=== PATIENT | female | born 1960 | race Caucasian/White ===

== ENCOUNTER 2024-03-02 08:21 | Outpatient (OUT) | payer OTHER, SELFPAY ==
--- NOTE | 2024-03-02 08:24 | US_ITS ---
[address] [address] Patient Name: AIDE MCDUFFIE MRN: [id number] date: 1960 Sex: F Assigned Patient Location: US Current Patient Location: Accession/Order Number: [id number] Exam Date: 03/02/2024 08:30 Report Date: 03/03/2024 06:32 At the request of: NON-STAFF PHYSICIAN Procedure: US pelvis w/ transvaginal EXAMINATION: US pelvis w/ transvaginal HISTORY: Pelvic Pain R10.2 COMPARISON: No relevant comparison available. TECHNIQUE: Transabdominal and/or transvaginal sonographic examination was performed as indicated by examination type. FINDINGS: UTERUS: Hysterectomy. RIGHT OVARY: Not seen. LEFT OVARY: Not seen. CUL-DE-SAC: Unremarkable. No significant free fluid. BLADDER: Unremarkable. OTHER: None. US/US pelvis w/ transvaginal IMPRESSION: 1. Prior hysterectomy. 2. Neither ovary could be identified. No suspicious adnexal findings. Electronically authenticated by: PAT RIVERA Date: 03/03/2024 06:32
== END 2024-03-02 08:22 | disposition home or self-care (01) ==
LOC: US 08:21
DX: R10.2 Pelvic and perineal pain (principal)
CPT/HCPCS: 76830; 76856

== ENCOUNTER 2024-10-22 10:26 | Emergency (ER) | payer OTHER, SELFPAY ==
[2024-10-22 10:43] VITALS: BP 195/94; PULSE 75; TEMP 36.7; O2SAT 97; BMI 28.6
--- OUTSIDE RECORDS SUMMARY | 2024-10-22 10:44 | XMS_ITS | CCD ---
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 Start: 10-05-2023 Alcohol Comment Caffeine intak e: 2-3 cups per day coffee [facility] Start: 1960 Sex assigned at Not on file [facility] History of Present illness Narrative 09-28-2024 Sarah Addison MD - 09/28/2024 8:30 AM EST Note Date & Type Note Facility 09-28-2024 History of Presen t illness Narrative Patient ID: Aide Retana is a 63 y.o. female who presents for: LDI Follow Up: Patients Fatigue has Improved Joint pain has improved Muscle pain has improved Brain fog has improved Allergy symptoms have improved The patient complain of neurological symptoms: none The patient is sleeping well He/She are following the essentials to wellness: Following Diet: Good Sleeping 7-8 Hours per night: Good Taking recommended supplements: Good Getting regular exercise: Good Stress Management as directed: Good Review of Systems Unremarkable except as mentioned Objective The patient is pleasant and in no acute distress The patient has good eye contact and clear speech Visit Vitals Smoking Status Former No Known Allergies Current Outpatient Medications on File Prior to Visit Medication Sig Dispense Refill LDI 5u C6 Food LDI 6U C6 ENV No current facility-administered medications on file prior to visit. 1. Gastrointestinal food allergy (Primary) This patient has a chronic complex problem, that is variable in nature, requiring complex re-evaluation of dilutions and volumes for the low-dose immunotherapy (LDI) treatment doses; managment requires moderate decision making The patient, or their representatives, is here for LDI re-evaluation after having found an core dose. We have reviewed which symptoms have improved and which symptoms have not. We have reviewed any improvement that they may have received from booster doses. We have discussed and established that the patient remains essentially side effect free, except for possible mild transient symptoms at the time of dosing. We have discussed their remaining symptoms and disease processes. We have discussed other options for LDI targets. Their questions were answered. We have jointly agreed on either the current dosing or next target and it's starting dilution. We reviewed how to titrate their LDI, the Essentials to Wellness , the importance of continued communication thru the patient portal, and to keep office appointments and bring their folders to each appointment. - LDI; Place 1 Dose under the tongue every 8 (eight) weeks 5u C6 Food 2. Chronic non-seasonal allergic rhinitis Chronic problem that she is doing very well with. She has not used any antihistamines or nasal sprays and feels like she is breathing completely normal. - LDI; Place 1 Dose under the tongue every 8 (eight) weeks 6U C6 ENV documented in this encounter [facility] Clinical Note 05-25-2024 Note Date & Type Note Facility 05-25-2024 Note Patient Education Nutrition BMI for Adults Body mass index (BMI) is a number found using a person's weight and height. BMI can help tell how much of a person's weight is made up of fat. BMI does not measure body fat directly. It is used instead of tests that directly measure body fat, which can be difficult and expensive. What are BMI measurements used for? BMI is useful to: ??? Find out if your weight puts you at higher risk for medical problems. ??? Help recommend changes, such as in diet and exercise. This can help you reach a healthy weight. BMI screening can be done again to see if these changes are working. How is BMI calculated? Your height and weight are measured. The BMI is found from those numbers. This can be done with U.S. or metric measurements. Note that charts and online BMI calculators are available to help you find your BMI quickly and easily without doing these calculations. To calculate your BMI in U.S. measurements: 1. Measure your weight in pounds (lb). 2. Multiply the number of pounds by 703. ??? So, for an adult who weighs 150 lb, multiply that number by 703: 150 x 703, which equals 105,450. 3. Measure your height in inches. Then multiply that number by itself to get a measurement called inches squared. ??? So, for an adult who is 70 inches tall, the inches squared measurement is 70 inches x 70 inches, which equals 4,900 inches squared. 4. Divide the total from step 2 (number of lb x 703) by the total from step 3 (inches squared): 105,450 ? 4,900 = 21.5. This is your BMI. To calculate your BMI in metric measurements: 1. Measure your weight in kilograms (kg). ??? For this example, the weight is 70 kg. 2. Measure your height in meters (m). Then multiply that number by itself to get a measurement called meters squared. ??? So, for an adult who is 1.75 m tall, the meters squared measurement is 1.75 m x 1.75 m, which equals 3.1 meters squared. 3. Divide the number of kilograms (your weight) by the meters squared number. In this example: 70 ? 3.1 = 22.6. This is your BMI. What do the results mean? BMI charts are used to see if you are underweight, normal weight, overweight, or obese. The following guidelines will be used: ??? Underweight: BMI less than 18.5. ??? Normal weight: BMI between 18.5 and 24.9. ??? Overweight: BMI between 25 and 29.9. ??? Obese: BMI of 30 or above. BMI is a tool and cannot diagnose a condition. Talk with your health care provider about what your BMI means for you. Keep these notes in mind: ??? Weight includes fat and muscle. Someone with a muscular build, such as an athlete, may have a BMI that is higher than 24.9. In cases like these, BMI is not a correct measure of body fat. ??? If you have a BMI of 25 or higher, your provider may need to do more testing to find out if excess body fat is the cause. ??? BMI is measured the same way for males and females. Females usually have more body fat than males of the same height and weight. Where to find more information For more information about BMI, including tools to quickly find your BMI, go to: ??? Centers for Disease Control and Prevention: cdc.gov ??? [place] [employer]: heart.org ??? National Heart, Lung, and Blood [place]: nhlbi.nih.gov This information is not intended to replace advice given to you by your health care provider. Make sure you discuss any questions you have with your health care provider. Document Revised: 04/01/2023 Document Reviewed: 03/25/2023 [employer] Patient Education ? 2023 [employer]. [facility] Clinical Note 04-03-2024 Note Date & Type Note Facility 04-03-2024 Note Patient Education Nutrition BMI for Adults Body mass index (BMI) is a number found using a person's weight and height. BMI can help tell how much of a person's weight is made up of fat. BMI does not measure body fat directly. It is used instead of tests that directly measure body fat, which can be difficult and expensive. What are BMI measurements used for? BMI is useful to: ? Find out if your weight puts you at higher risk for medical problems. ? Help recommend changes, such as in diet and exercise. This can help you reach a healthy weight. BMI screening can be done again to see if these changes are working. How is BMI calculated? Your height and weight are measured. The BMI is found from those numbers. This can be done with U.S. or metric measurements. Note that charts and online BMI calculators are available to help you find your BMI quickly and easily without doing these calculations. To calculate your BMI in U.S. measurements: 1. Measure your weight in pounds (lb). 2. Multiply the number of pounds by 703. ? So, for an adult who weighs 150 lb, multiply that number by 703: 150 x 703, which equals 105,450. 3. Measure your height in inches. Then multiply that number by itself to get a measurement called inches squared. ? So, for an adult who is 70 inches tall, the inches squared measurement is 70 inches x 70 inches, which equals 4,900 inches squared. 4. Divide the total from step 2 (number of lb x 703) by the total from step 3 (inches squared): 105,450 ? 4,900 = 21.5. This is your BMI. To calculate your BMI in metric measurements: 1. Measure your weight in kilograms (kg). ? For this example, the weight is 70 kg. 2. Measure your height in meters (m). Then multiply that number by itself to get a measurement called meters squared. ? So, for an adult who is 1.75 m tall, the meters squared measurement is 1.75 m x 1.75 m, which equals 3.1 meters squared. 3. Divide the number of kilograms (your weight) by the meters squared number. In this example: 70 ? 3.1 = 22.6. This is your BMI. What do the results mean? BMI charts are used to see if you are underweight, normal weight, overweight, or obese. The following guidelines will be used: ? Underweight: BMI less than 18.5. ? Normal weight: BMI between 18.5 and 24.9. ? Overweight: BMI between 25 and 29.9. ? Obese: BMI of 30 or above. BMI is a tool and cannot diagnose a condition. Talk with your health care provider about what your BMI means for you. Keep these notes in mind: ? Weight includes fat and muscle. Someone with a muscular build, such as an athlete, may have a BMI that is higher than 24.9. In cases like these, BMI is not a correct measure of body fat. ? If you have a BMI of 25 or higher, your provider may need to do more testing to find out if excess body fat is the cause. ? BMI is measured the same way for males and females. Females usually have more body fat than males of the same height and weight. Where to find more information For more information about BMI, including tools to quickly find your BMI, go to: ? Centers for Disease Control and Prevention: cdc.gov ? [place] [employer] Association: heart.org ? National Heart, Lung, and Blood [place]: nhlbi.nih.gov This information is not intended to replace advice given to you by your health care provider. Make sure you discuss any questions you have with your health care provider. Document Revised: 04/01/2023 Document Reviewed: 03/25/2023 [email or web address] Patient Education ? 2023 [employer]. [facility] Clinical Note 02-15-2024 Note Date & Type Note Facility 02-15-2024 Note Nurse Consultation N ote Assessment/Plan Dysuria (R30.0: Dysuria) Medications meloxicam 15 mg Tab, 15 mg= 1 tab(s), Oral, Daily, PRN, 3 refills Allergies Cortisporin Otic (Unknown) Immunizations Vaccine Date Status Comments SARS-CoV-2 mRNA (susannan 5y-11y) vac - Not Given Postpone due to refusal influenza virus vaccine, inactivated 07/04/2019 Recorded influenza virus vaccine, inactivated 04/26/2017 Recorded Lab Results Ambulatory Point of Care Results Bilirubin Urine Dipstick: Negative (02/15/24 13:53:00) Blood Urine Dipstick: 1+ Small (02/15/24 13:53:00) Glucose Urine Dipstick: Negative (02/15/24 13:53:00) Ketones Urine Dipstick: Negative (02/15/24 13:53:00) Leukocytes Urine Dipstick: Trace (02/15/24 13:53:00) Nitrite Urine Dipstick: Negative (02/15/24 13:53:00) Protein Urine Dipstick: Negative (02/15/24 13:53:00) Specific [place] Urine Dipstick: >=1.030 (02/15/24 13:53:00) Urine Appearance Urine Dipstick: Clear (02/15/24 13:53:00) Urine Color Urine Dipstick: Light yellow (02/15/24 13:53:00) Urobilinogen Urine Dipstick: Normal 0.2-1 EU/dl (02/15/24 13:53:00) pH Urine Dipstick: 5 (02/15/24 13:53:00) [facility] Clinical Note 02-15-2024 Note Date & Type Note Facility 02-15-2024 Note Nurse Consultation N ote Reason for Visit Pt came in for a UA she is complaining of dysuria, frequency, pain, and pressure and a bad odor Assessment/Plan Dysuria (R30.0: Dysuria) Medications meloxicam 15 mg Tab, 15 mg= 1 tab(s), Oral, Daily, PRN, 3 refills Allergies Cortisporin Otic (Unknown) Immunizations Vaccine Date Status Comments SARS-CoV-2 mRNA (tozinameran 5y-11y) vac - Not Given Postpone due to refusal influenza virus vaccine, inactivated 07/04/2019 Recorded influenza virus vaccine, inactivated 04/26/2017 Recorded Lab Results Ambulatory Point of Care Results Bilirubin Urine Dipstick: Negative (02/15/24 13:53:00) Blood Urine Dipstick: 1+ Small (02/15/24 13:53:00) Glucose Urine Dipstick: Negative (02/15/24 13:53:00) Ketones Urine Dipstick: Negative (02/15/24 13:53:00) Leukocytes Urine Dipstick: Trace (02/15/24 13:53:00) Nitrite Urine Dipstick: Negative (02/15/24 13:53:00) Protein Urine Dipstick: Negative (02/15/24 13:53:00) Specific [place] Urine Dipstick: >=1.030 (02/15/24 13:53:00) Urine Appearance Urine Dipstick: Clear (02/15/24 13:53:00) Urine Color Urine Dipstick: Light yellow (02/15/24 13:53:00) Urobilinogen Urine Dipstick: Normal 0.2-1 EU/dl (02/15/24 13:53:00) pH Urine Dipstick: 5 (02/15/24 13:53:00) [facility] Clinical Note 02-15-2024 Note Date & Type Note Facility 02-15-2024 Note Nurse Consultation N ote Reason for Visit UA drop off she is complaining of Dysuria, frequency, and pressure,bad odor Medications meloxicam 15 mg Tab, 15 mg= 1 tab(s), Oral, Daily, PRN, 3 refills Allergies Cortisporin Otic (Unknown) Immunizations Vaccine Date Status Comments SARS-CoV-2 mRNA (tozinameran 5y-11y) vac - Not Given Postpone due to refusal influenza virus vaccine, inactivated 07/04/2019 Recorded influenza virus vaccine, inactivated 04/26/2017 Recorded [facility] Evaluation note Note Date & Type Note Facility Evaluation note Diagnosis Gastrointestinal food allergy- Primary Allergic gastroenteritis and colitis Chronic non-seasonal allergic rhinitis documented in this encounter [facility] Summary Purpose Family History No Family History Records FoundNo Family History Records FoundNo Family History Records FoundNo Family History Records FoundNo Family History Records Found Advance Directives No Advanced Directives Records FoundNo Advanced Directives Records FoundNo Advanced Directives Records FoundNo Advanced Directives Records FoundNo Advanced Directives Records Found Additional Source Comments INFORMATION SOURCE (unrecogn ized section and content) DATE CREATED AUTHOR 12/07/2022 [facility] DATE CREATED AUTHOR AUTHOR'S ORGANIZ ATION 02/24/2024 [facility] DATE CREATED AUTHOR AUTHOR'S ORGANIZ ATION 02/27/2024 [facility] DATE CREATED AUTHOR AUTHOR'S ORGANIZ ATION 09/30/2024 [facility] DATE CREATED AUTHOR AUTHOR'S ORGANIZ ATION 10/18/2024 [facility] Care Teams (unrecognized sec tion and content) [employer] Relationship Specialty Start Date End Date Ivan Serrano MD PCP - General Family Medicine 09/27/23 [employer] Relationship Specialty Start Date End Date Ivan Serrano MD PCP - General Family Medicine 09/27/23 Reason for Visit (unrecogniz ed section and content) Reason Comments LDI FOR RECORDS PERTAINING TO PATIENTS WHO ARE OR HAVE BEEN ENROLLED IN A CHEMICAL DEPENDENCY/SUBSTANCEABUSE PROGRAM, SOME INFORMATION MAY BE OMITTED. This clinical summary was aggregated from multiple sources. Caution should be exercised in using it in the provision of clinical care. This summary normalizes information from multiple sources, and as a consequence, information in this document may materially change the coding, format and clinical context of patient data. In addition, data may be omitted in some cases. CLINICAL DECISIONS SHOULD BE BASED ON THE PRIMARY CLINICAL RECORDS. [facility]. provides no warranty or guarantee of the accuracy or completeness of information in this document.
--- NOTE | 2024-10-22 10:53 | ED_ITS ---
HPI HPI - General Adult General Chief complaint: Abdominal Pain Stated complaint: NO BOWEL MOMENT FOR 1 WEEK, SWEATS Time Seen by Provider: 10/22/24 10:32 Source: patient Mode of arrival: walk-in History of Present Illness HPI narrative: 63-year-old female presents for abdominal pain and inability to have a bowel movement. 6 days ago she developed nausea vomiting and diarrhea in the next day saw her doctor and he prescribed her Zofran. It then resolved but she has not had a bowel movement since then and now she has diffuse abdominal pain. No fever or hematemesis or hematochezia. The diarrhea has fully resolved as has the vomiting and nausea. Related Data Home Medications ?Medication ?Instructions ?Recorded ?Confirmed meloxicam 15 mg tablet 15 mg PO DAILY PRN pain 10/22/24 10/22/24 ondansetron HCl 4 mg tablet 4 mg PO Q8H PRN nausea and vomiting 10/22/24 10/22/24 Allergies Allergy/AdvReac Type Severity Reaction Status Date / Time No Known Drug Allergies Allergy Verified 10/22/24 10:42 Opioid HPI Opioid Management Most Recent Opioid Data: No Data to Display Review of Systems ROS Narrative A ten point review of systems is negative except as noted above. PFSH PFSH Social History Little interest or pleasure in doing things: not at all Feeling down, depressed, or hopeless: not at all Exam Narrative Exam Narrative: Nurses note and vital signs reviewed and patient is not hypoxic. General: The patient appears in no apparent distress. Patient is resting on cart. Skin: Warm, dry, no pallor noted. There is no rash noted. Head: Normocephalic, atraumatic Eye: Normal conjunctiva, no drainage Ears, Nose, Mouth, and Throat: oral mucosa is moist. Nares patent. Cardiovascular: Regular Rate and Rhythm Respiratory: Patient is in no distress, no accessory muscle use, lungs are clear to auscultation, no wheezing, rales or rhonchi Back: non-tender GI: Diffuse redness without distention or mass. No rebound or guarding Musculoskeletal: The patient has no evidence of calf tenderness, no pitting edema, symmetrical pulses noted bilaterally Neurological: A&O, normal speech Psychiatric: Cooperative Constitutional Vital Signs, click to edit/add: Last Vital Signs Temp 98.0 F 10/22/24 10:43 Pulse 72 10/22/24 12:18 Resp 18 10/22/24 12:18 BP 165/95 H 10/22/24 12:18 Pulse Ox 98 10/22/24 12:18 Course Vital Signs Vital signs: Vital Signs Temperature 98.0 F 10/22/24 10:43 Pulse Rate 75 10/22/24 10:43 Respiratory Rate 18 10/22/24 10:43 Blood Pressure 195/94 H 10/22/24 10:43 Pulse Oximetry 97 10/22/24 10:43 Temperature 98.0 F 10/22/24 10:43 Pulse Rate 72 10/22/24 12:18 Respiratory Rate 18 10/22/24 12:18 Blood Pressure 165/95 H 10/22/24 12:18 Pulse Oximetry 98 10/22/24 12:18 Medical Decision Making MDM Narrative Medical decision making narrative: CAT scan shows constipation. No other abnormalities are identified. She was given a bottle of magnesium citrate. Treatment diagnosis and follow-up were discussed with the patient. Differential Diagnosis Differential Diagnosis: Constipation, bowel obstruction, diverticulitis, colitis Lab Data Lab results reviewed: Yes I reviewed the patient's lab results Labs: Lab Results 10/22/24 10/22/24 Range/Units 11:08 11:15 WBC 9.8 (4.0-11.0) 10^3/uL RBC 4.99 (4.20-5.40) 10^6/uL Hgb 14.6 (12.0-16.0) g/dL Hct 42.3 (36.0-48.0) % MCV 84.8 (81.0-99.0) fL MCH 29.3 (26.7-34.0) pg MCHC 34.5 (29.9-35.2) g/dL RDW 12.5 (11.0-15.0) % Plt Count 383 (150-450) 10^3/uL MPV 9.9 (9.5-13.5) fL Neut % (Auto) 72.4 (43.0-75.0) % Lymph % (Auto) 21.6 (20.5-60.0) % [place] % (Auto) 4.7 (1.7-12.0) % Eos % (Auto) 0.5 L (0.9-7.0) % Baso % (Auto) 0.5 (0.2-2.0) % Neut # (Auto) 7.1 H (1.4-6.5) 10^3/uL Lymph # (Auto) 2.1 (1.2-3.8) 10^3/uL [place] # (Auto) 0.5 (0.3-0.8) 10^3/uL Eos # (Auto) 0.1 (0.0-0.7) 10^3/uL Baso # (Auto) 0.1 (0.0-0.1) 10^3/uL Abs Immat Gran (auto) 0.03 (0.00-0.03) 10^3/uL Imm/Tot Granulo (auto) 0.3 (0.0-0.5) % Sodium 140 (136-145) mmol/L Potassium 4.2 (3.5-5.1) mmol/L Chloride 103 (98-107) mmol/L Carbon Dioxide 25.8 (21.0-32.0) mmol/L Anion Gap 15.4 BUN 19.0 H (7.0-18.0) mg/dL Creatinine 0.93 (0.55-1.02) mg/dL Est GFR ( Amer) >60 (>=60 mL/min/1.73m^2) Est GFR (Non-Af Amer) >60 (>=60 mL/min/1.73m^2) BUN/Creatinine Ratio 20.4 Glucose 120 H (74-106) mg/dL Calcium 9.7 (8.5-10.1) mg/dL Total Bilirubin 0.3 (0.2-1.0) mg/dL Direct Bilirubin <0.1 (0.0-0.2) mg/dL AST 20 (15-37) U/L ALT 37 (14-59) U/L Alkaline Phosphatase 87 (46-116) U/L Total Protein 7.8 (6.4-8.2) g/dL Albumin 4.1 (3.4-5.0) g/dL Globulin 3.7 g/dL Albumin/Globulin Ratio 1.1 Amylase 55 (25-115) U/L Lipase 47.0 (16.0-77.0) U/L Urine Color Lt. yellow (YELLOW) Urine Clarity Clear (CLEAR) Urine pH 6.0 (5.0-9.0) Ur Specific [place] <=1.005 A (1.005-1.025) Urine Protein Negative (NEG/TRACE) mg/dL Urine Glucose (UA) Negative (NEGATIVE) mg/dL Urine Ketones Negative (NEGATIVE) mg/dL Urine Occult Blood Trace-i (NEGATIVE) Urine Nitrite Negative (NEGATIVE) Urine Bilirubin Negative (NEGATIVE) Urine Urobilinogen 0.2 (0.2-1.0) EU/dL Ur Leukocyte Esterase Negative (NEGATIVE) Urine RBC 0-2 (0-2) #/HPF Urine WBC None seen (NONE SEEN) #/HPF Ur Squamous Epith Cells None seen (NONE/RARE) #/LPF Urine Crystals None seen (None Seen) #/HPF Urine Bacteria None seen (NONE SEEN) #/HPF Urine Casts None seen (NONE SEEN) #/LPF Urine Mucus None seen (NONE SEEN) Ur Culture Indicated? No Imaging Data CT scan - abdomen: Radiologist's impression: Fatty infiltration of the liver, constipation, normal appendix Discharge Plan Discharge Chief Complaint: Abdominal Pain Clinical Impression: Constipation Patient Disposition: Home, Self-Care Time of Disposition Decision: 13:25 Condition: Good Mode of Transportation: Private Vehicle Prescriptions / Home Meds: No Action meloxicam 15 mg tablet 15 mg PO DAILY PRN (Reason: pain) ondansetron HCl 4 mg tablet 4 mg PO Q8H PRN (Reason: nausea and vomiting) Print Language: Hungarian Instructions: Constipation (ED) Referrals: Physician,Non-Staff, [Primary Care Provider] - 1 week
[2024-10-22 11:23] LABS: Basophils Absolute Auto 0.1 10^3/uL (0.0-0.1); Basophils Percent Auto 0.5 % (0.2-2.0); Eosinophils Absolute Auto 0.1 10^3/uL (0.0-0.7); Eosinophils Percent Auto 0.5 % (0.9-7.0); Hematocrit 42.3 % (36.0-48.0); Hemoglobin 14.6 g/dL (12.0-16.0); Immature Granulocytes Abs Auto 0.03 10^3/uL (0.00-0.03); Immature Granulocytes Pct Auto 0.3 % (0.0-0.5); Lymphocytes Absolute Auto 2.1 10^3/uL (1.2-3.8); Lymphocytes Percent Auto 21.6 % (20.5-60.0); Mean Corpuscular HGB Conc 34.5 g/dL (29.9-35.2); Mean Corpuscular Hemoglobin 29.3 pg (26.7-34.0); Mean Corpuscular Volume 84.8 fL (81.0-99.0); Mean Platelet Volume 9.9 fL (9.5-13.5); Monocytes Absolute Auto 0.5 10^3/uL (0.3-0.8); Monocytes Percent Auto 4.7 % (1.7-12.0); Neutrophils Absolute Auto 7.1 10^3/uL (1.4-6.5); Neutrophils Percent Auto 72.4 % (43.0-75.0); Platelet Count 383 10^3/uL (150-450); Red Blood Count 4.99 10^6/uL (4.20-5.40); Red Cell Distribution Width 12.5 % (11.0-15.0); White Blood Count 9.8 10^3/uL (4.0-11.0)
[2024-10-22 11:23] LABS: Bilirubin Urine NEGATIVE (NEGATIVE); Blood Urine TRACE-I (NEGATIVE); Clarity Urine CLEAR (CLEAR); Color Urine LT. YELLOW (YELLOW); Glucose Urine UA NEGATIVE (NEGATIVE); Ketones Urine NEGATIVE (NEGATIVE); Leukocyte Esterase Urine NEGATIVE (NEGATIVE); Nitrite Urine NEGATIVE (NEGATIVE); Protein Urine NEGATIVE (NEG/TRACE); Specific Gravity Urine <=1.005 (1.005-1.025); Urobilinogen Urine 0.2 EU/dL (0.2-1.0)
[2024-10-22 11:33] LABS: Bacteria Urine NONE SEEN #/HPF (NONE SEEN); Cast Seen? NONE SEEN #/LPF (NONE SEEN); Crystals Seen? None Seen #/HPF (None Seen); Mucus Urine NONE SEEN (NONE SEEN); RBC Urine 0-2 #/HPF (0-2); Squamous Epithelial Cell Urine NONE SEEN #/LPF (NONE/RARE); Urine Culture Indicated NO; WBC Urine NONE SEEN #/HPF (NONE SEEN)
[2024-10-22 11:38] LABS: Alanine Aminotransferase 37 U/L (14-59); Albumin Globulin Ratio 1.1; Albumin Level 4.1 g/dL (3.4-5.0); Alkaline Phosphatase 87 U/L (46-116); Anion Gap 15.4; Aspartate Amino Transferase 20 U/L (15-37); BUN Creatinine Ratio 20.4; Bilirubin Direct <0.1 mg/dL (0.0-0.2); Bilirubin Total 0.3 mg/dL (0.2-1.0); Calcium 9.7 mg/dL (8.5-10.1); Carbon Dioxide 25.8 mmol/L (21.0-32.0); Chloride 103 mmol/L (98-107); Estimated GFR (African America >60 (>=60 mL/min/1.73m^2); Estimated GFR (Non-African Ame >60 (>=60 mL/min/1.73m^2); Globulin 3.7 g/dL; Glucose 120 mg/dL (74-106); Potassium 4.2 mmol/L (3.5-5.1); Sodium 140 mmol/L (136-145); Total Protein 7.8 g/dL (6.4-8.2)
[2024-10-22 11:39] LABS: Amylase 55 U/L (25-115)
[2024-10-22 12:18] VITALS: BP 165/95; PULSE 72; O2SAT 98
[2024-10-22] MEDS: MAGNESIUM CITRATE 296 ML SOLUTION PO (13:37)
== END 2024-10-22 13:40 | disposition home or self-care (01) ==
PROVIDERS: Emergency Provider Emergency Medicine
DX: K59.00 Constipation, unspecified (principal)
CPT/HCPCS: 36415; 74177; 80048; 80076; 81001; 82150; 83690; 85025; 99284; Q9967